=== PATIENT | male | born 1980 | race African-American/Black ===

== ENCOUNTER 2021-04-14 14:23 | Inpatient (IN) | payer MEDICAID ==
[~2021-04-14] VITALS: Ht 177.8 cm; Wt 74.1 kg
--- NOTE | 2021-04-14 15:00 | NUR ---
patient came in to the er c/o R leg cellulitis, on room air, breathing evenly, connected to the monitor and pulse ox, Kept comfortable, will continue to monitor accordingly.
[2021-04-14] MEDS ORDERED: VANCOMYCIN 1 GM in IV D5W 250 ML IV ONE (16:00)
[2021-04-14] MEDS ORDERED: CEFEPIME 1 GM in IV D5W 50 ML IV ONE (16:00)
[2021-04-14] MEDS ORDERED: ACYC-108 PO (16:19)
[2021-04-14] MEDS ORDERED: GABA-532 PO (16:19)
[2021-04-14 16:57] LABS: BASOPHILS % (AUTO) 0.2 % (0.0-2.0); EOSINOPHILS % (AUTO) 0.4 % (0.0-6.0); HEMATOCRIT 43 % (39-51); HEMOGLOBIN 14.2 g/dL (13.5-17.5); LYMPHOCYTES # (AUTO) 1.2 K/uL (0.8-4.8); LYMPHOCYTES % (AUTO) 15.6 % (20.0-44.0); MEAN CORPUSCULAR HGB CONC 33 g/dl (31.0-36.0); MEAN CORPUSCULAR VOLUME 81 fL (80-96); MONOCYTES # (AUTO) 1.1 K/uL (0.1-1.30); NEUTROPHILS # (AUTO) 5.5 K/uL (1.8-8.9); NEUTROPHILS % (AUTO) 69.8 % (43.0-81.0); PLATELET COUNT (AUTO) 126 K/uL (150-450); RED BLOOD CELL COUNT(AUTO) 5.34 MIL/uL (4.5-6.0); WHITE BLOOD COUNT (AUTO) 7.9 K/uL (4.3-11.0)
[2021-04-14 17:05] LABS: CALCIUM, SERUM 8.6 mg/dL (8.5-10.1); CREATININE 1.3 mg/dL (0.6-1.3); POTASSIUM 3.5 mmol/L (3.5-5.1)
--- NOTE | 2021-04-14 18:13 | NUR ---
technical cable jointer at bedside for exam.
--- NOTE | 2021-04-14 19:22 | NUR ---
REC'D REPORT FROM JENI WINN FOR KYLE
[2021-04-14] MEDS ORDERED: Z GUARD REMEDY 2 OZ OINT TP PRN (20:00)
[2021-04-14] MEDS ORDERED: ONDANSETRON HCL/PF 4 MG/2 ML VIAL IVP PRN (20:00)
[2021-04-14] MEDS ORDERED: MAGNESIUM HYDROXIDE 30 ML UDC PO PRN (20:00)
[2021-04-14] MEDS ORDERED: ZOLPIDEM TARTRATE 5 MG TABLET PO PRN (20:00)
[2021-04-14] MEDS ORDERED: MORPHINE SULFATE INJ 2 MG/ML DISP.SYRIN IV PRN (20:00)
[2021-04-14] MEDS ORDERED: MAG HYDROX/AL HYDROX/SIMETH 30 ML UDC PO PRN (20:00)
--- NOTE | 2021-04-14 20:00 | NUR ---
[facility] SWAB COLLECTED AND SENT TO LAB. PATIENT'S BELONGINGS LIST DONE.
--- NOTE | 2021-04-14 20:13 | NUR ---
COVID SWAB SENT TO LAB
[2021-04-14] MEDS ORDERED: CEFEPIME 2 GM in IV D5W 100 ML IV SCH (21:00)
--- NOTE | 2021-04-14 21:02 | NUR ---
F/U FOR COVID RESULT. PER LAB ANOTHER 5-10 MIN
--- NOTE | 2021-04-14 21:15 | NUR ---
REPORT GIVEN TO [facility] [place] NURSE
[2021-04-14 21:30] VITALS: BP 143/62
[2021-04-14 22:00] VITALS: BP 143/62
[2021-04-14] MEDS: ENOXAPARIN SODIUM 40 MG/0.4 ML DISP.SYRIN SQ SCH (22:12)
[2021-04-14] MEDS ORDERED: CEFEPIME 1 GM VIAL ONE (22:12)
[2021-04-14] MEDS: ACETAMINOPHEN 325 MG TABLET PO PRN (22:52)
--- NOTE | 2021-04-14 23:00 | NUR ---
ADMITTED PATIENT FROM ED DUE TO RIGHT LOWER LEG CELLULITIS. ALERT/ORIENTED X4, ROOM AIR, LUNG SOUNDS ARE CLEAR, ABDOMEN SOFT AND NON-TENDER, DENIES NUMBNESS OF BLE. PAIN OF THE RIGHT LYMPH NODE AND RIGHT LEG, REDNESS, MILD SWELLING, PAIN ON AMBULATION, PER PATIENT, HAS HISTORY OF SHINGLES, KEPT SAFE, WILL CONTINUE TO MONITOR.
[2021-04-14] MEDS: IV NS 0.9% 1,000 ML IV PRN (23:28)
[2021-04-14] MEDS: CEFEPIME 2 GM in IV D5W 100 ML IV SCH (23:28)
[2021-04-14] MEDS ORDERED: VANCOMYCIN 1 GM VIAL ONE (23:46)
[2021-04-15] MEDS ORDERED: VANCOMYCIN 1 GM in IV D5W 250 ML IV ONE (05:00)
--- NOTE | 2021-04-15 06:09 | NUR ---
ALERT/ORIENTED X4, ROOM AIR, COMPLAINING OF PAIN OF THE RIGHT GROIN LYMPH NODE AND RIGHT LEG, DX CELLULITIS OF THE RIGHT LOWER EXTREMITIES. RIGHT LEG IS RED, WITH MILD SWELLING, PAINFUL ON AMBULATION. NS AT 75 ML/HR, MAXIPIME Q8HRS, GIVEN IN ED AND IN THE UNIT. VANCOMYCIN 1 GRAM X1. WILL ORDER WOUND CARE CONSULT.
[2021-04-15 06:58] LABS: BASOPHILS % (AUTO) 0.3 % (0.0-2.0); EOSINOPHILS % (AUTO) 1.2 % (0.0-6.0); HEMATOCRIT 39 % (39-51); HEMOGLOBIN 13.5 g/dL (13.5-17.5); LYMPHOCYTES # (AUTO) 1.7 K/uL (0.8-4.8); LYMPHOCYTES % (AUTO) 23.5 % (20.0-44.0); MEAN CORPUSCULAR HGB CONC 34 g/dl (31.0-36.0); MEAN CORPUSCULAR VOLUME 80 fL (80-96); MONOCYTES # (AUTO) 1.3 K/uL (0.1-1.30); MONOCYTES % (AUTO) 18.1 % (2.0-12.0); NEUTROPHILS # (AUTO) 4.1 K/uL (1.8-8.9); NEUTROPHILS % (AUTO) 56.9 % (43.0-81.0); PLATELET COUNT (AUTO) 132 K/uL (150-450); RED BLOOD CELL COUNT(AUTO) 4.94 MIL/uL (4.5-6.0); WHITE BLOOD COUNT (AUTO) 7.2 K/uL (4.3-11.0)
--- NOTE | 2021-04-15 07:32 | NUR ---
RN OPENING NOTE PATIENT SLEEP IN BED RESTING. AWAKEN TO VERBAL STIMULI A/O X4. NO S/S OF PAIN NOTED AT THIS TIME. ON ROOM AIR. NO DISTRESS OR SHORTNESS OF BREATH NOTED, BREATHING EVEN/UNLABORED. IV ACCESS RAC #18G NS 75ML/HR. FALL AND SAFETY MEASURES IN PLACE, BED ALARM ON, BED IN LOW AND LOCK POSITION, CALL LIGHT AND TABLE WITHIN EASY REACH, SIDE RAILS UP X2. WILL CONTINUE TO MONITOR.
[2021-04-15 07:51] LABS: ALBUMIN 3.3 g/dL (3.4-5.0); BILIRUBIN,TOTAL 0.8 mg/dL (0.2-1.0); CALCIUM, SERUM 8.8 mg/dL (8.5-10.1); CREATININE 1.3 mg/dL (0.6-1.3); MAGNESIUM 2.1 mg/dL (1.8-2.4); PHOSPHORUS 2.8 mg/dL (2.5-4.9); POTASSIUM 3.3 mmol/L (3.5-5.1); TOTAL PROTEIN, SERUM 7.2 g/dL (6.4-8.2)
[2021-04-15 08:00] VITALS: BP 119/69
[2021-04-15] MEDS: ACETAMINOPHEN 325 MG TABLET PO PRN (08:15)
[2021-04-15] MEDS: PANTOPRAZOLE 40 MG TABLET.DR PO SCH (08:16)
[2021-04-15] MEDS: CEFEPIME 2 GM in IV D5W 100 ML IV SCH ×2 (08:16→16:16)
--- NOTE | 2021-04-15 08:20 | NUR ---
RN NOTE VANCOMYCIN STOCK MED GIVEN LAST NIGHT FOR SCHEDULED DOSE.
[2021-04-15] MEDS ORDERED: POTASSIUM CHLORIDE 20 MEQ TAB.PRT.SR PO ONE (11:00)
--- NOTE | 2021-04-15 11:37 | NUR ---
WOUND CARE CONSULT: PT PRESENTS WITH RT LOWER LEG DISCOLORATION AND FRAGILE INTACT BLISTERING, PRESENT ON ADMISSION. DPM CONSULT CALLED TO DR HAMPAPUR. GILLIS IN AGREEMENT WITH PLAN OF CARE.
[2021-04-15 16:00] VITALS: BP 126/61
[2021-04-15 17:27] LABS: LYMPHOCYTES % (MANUAL) 28 % (16-48); MONOCYTES % (MANUAL) 13 % (0-11.0); NEUTROPHILS % (MANUAL) 59 (42-76)
[2021-04-15] MEDS: VANCOMYCIN 1.25 GM in IV D5W 250 ML IV SCH (18:34)
--- NOTE | 2021-04-15 18:42 | NUR ---
RN OPENING NOTE PATIENT AWAKE IN BED RESTING. FAMILY IN ROOM. A/O X4. NO S/S OF PAIN NOTED AT THIS TIME. ON ROOM AIR. NO DISTRESS OR SHORTNESS OF BREATH NOTED, BREATHING EVEN/UNLABORED. IV ACCESS RAC #18G NS 75ML/HR. FALL AND SAFETY MEASURES IN PLACE, BED ALARM ON, BED IN LOW AND LOCK POSITION, CALL LIGHT AND TABLE WITHIN EASY REACH, SIDE RAILS UP X2. WILL CONTINUE TO MONITOR. Addendum: 04/15/21 at 1847 by Kalpana Alcantara RN RN CLOSING NOTE
--- NOTE | 2021-04-15 21:16 | NUR ---
MS RN OPENING NOTES: RECEIVED PATIENT IN BED, AWAKE, A/O X3. NO S/S OF DISTRESS. PATIENT DENIES ANY PAIN AT THIS TIME. RESPIRATION EVEN AND UNLABORED WITH EQUAL RISE AND FALL OF THE CHEST, ON ROOM AIR. ALL SAFETY MEASURES IN PLACE. WILL CONTINUE TO MONITOR.
[2021-04-15] MEDS: ENOXAPARIN SODIUM 40 MG/0.4 ML DISP.SYRIN SQ SCH (21:30)
[2021-04-15 22:13] VITALS: BP 143/71
[2021-04-16] MEDS: CEFEPIME 2 GM in IV D5W 100 ML IV SCH ×4 (00:20→23:52)
[2021-04-16 03:24] LABS: BASOPHILS % (AUTO) 0.5 % (0.0-2.0); EOSINOPHILS % (AUTO) 3.6 % (0.0-6.0); HEMATOCRIT 40 % (39-51); HEMOGLOBIN 13.4 g/dL (13.5-17.5); LYMPHOCYTES # (AUTO) 1.8 K/uL (0.8-4.8); LYMPHOCYTES % (AUTO) 30.6 % (20.0-44.0); MEAN CORPUSCULAR HGB CONC 33 g/dl (31.0-36.0); MEAN CORPUSCULAR VOLUME 79 fL (80-96); MONOCYTES # (AUTO) 0.8 K/uL (0.1-1.30); NEUTROPHILS % (AUTO) 51.3 % (43.0-81.0); PLATELET COUNT (AUTO) 150 K/uL (150-450); RED BLOOD CELL COUNT(AUTO) 5.06 MIL/uL (4.5-6.0); WHITE BLOOD COUNT (AUTO) 5.8 K/uL (4.3-11.0)
[2021-04-16 03:38] LABS: CALCIUM, SERUM 8.6 mg/dL (8.5-10.1); CREATININE 1.2 mg/dL (0.6-1.3); PHOSPHORUS 3.4 mg/dL (2.5-4.9); POTASSIUM 3.6 mmol/L (3.5-5.1)
[2021-04-16] MEDS: VANCOMYCIN 1.25 GM in IV D5W 250 ML IV SCH ×2 (04:22→17:05)
--- NOTE | 2021-04-16 07:16 | NUR ---
MS RN OPENING NOTE RECEIVED PATIENT ALERT/ ORIENTED X 4. PATIENT IS ON ROOM AIR WITH EQUAL AND UNLABORED BREATHING WITH NO SIGNS OF RESPIRATORY DISTRESS. PATIENT DOS NOT COMPLAIN OF PAIN OR DISCOMFORT FOR NOW. PATIENT WITH IV ACCESS ON RIGHT AC G 18 WITH IVF OF NS RUNNING AT 75ML/HR INFUSING WELL. SAFETY MEASURES ENSURED WITH BED LOCKED AND AT LOWEST POSITION, WITH SIDERAILS UP. CALL LIGHT AND TABLE WITHIN REACH AT ALL TIMES. WILL CONTINUE TO MONITOR PATIENT.
[2021-04-16 08:00] VITALS: BP 121/78
[2021-04-16] MEDS: PANTOPRAZOLE 40 MG TABLET.DR PO SCH (08:19)
[2021-04-16] MEDS: IV NS 0.9% 1,000 ML IV PRN (12:29)
--- NOTE | 2021-04-16 19:38 | NUR ---
RN OPENING NOTES Patient is A&Ox4, girlfriend at bedside. Says only very minimal pain to Right lower leg but is better when elevated on pillow. Denies side effects from abx. Tolerating well. RAC #18G IV patent and infusing NS at 75cc/hr. Will continue with plan of care.
[2021-04-16 20:00] VITALS: BP 137/66
[2021-04-16] MEDS: ENOXAPARIN SODIUM 40 MG/0.4 ML DISP.SYRIN SQ SCH (20:43)
[2021-04-17] MEDS: VANCOMYCIN 1.25 GM in IV D5W 250 ML IV SCH (03:55)
[2021-04-17] MEDS: IV NS 0.9% 1,000 ML IV PRN (05:52)
--- NOTE | 2021-04-17 06:15 | NUR ---
RN CLOSING NOTES Patient slept well overnight though easy to wake. Tolerating IV ABX well. Pain to Rlowerleg improved and no PRN medications needed. Patient is currently awake, A&Ox4. No signs of distress.
[2021-04-17 07:25] LABS: BASOPHILS % (AUTO) 0.4 % (0.0-2.0); EOSINOPHILS % (AUTO) 4.3 % (0.0-6.0); HEMATOCRIT 39 % (39-51); LYMPHOCYTES # (AUTO) 1.7 K/uL (0.8-4.8); LYMPHOCYTES % (AUTO) 31.1 % (20.0-44.0); MEAN CORPUSCULAR HGB CONC 33 g/dl (31.0-36.0); MEAN CORPUSCULAR VOLUME 80 fL (80-96); MONOCYTES # (AUTO) 0.7 K/uL (0.1-1.30); MONOCYTES % (AUTO) 13.5 % (2.0-12.0); NEUTROPHILS # (AUTO) 2.7 K/uL (1.8-8.9); NEUTROPHILS % (AUTO) 50.7 % (43.0-81.0); PLATELET COUNT (AUTO) 178 K/uL (150-450); RED BLOOD CELL COUNT(AUTO) 4.87 MIL/uL (4.5-6.0); WHITE BLOOD COUNT (AUTO) 5.4 K/uL (4.3-11.0)
--- NOTE | 2021-04-17 07:35 | NUR ---
MS RN OPENING NOTES RECEIVED PT AWAKE, AMBULATORY, NO SIGNS OF ACUTE DISTRESS NOTED. ON ROOM AIR, NO SOB NOTED, BREATHING EVEN AND UNLABORED. WITH IV ACCESS ON RAC #18g, INTACT AND PATENT, WITH NS @75ML/HR RUNNING. OFFERED NO COMPLAINTS. SAFETY PRECAUTIONS MAINTAINED, BED LOCKED AND IN LOWEST POSITION, SR UP X2, CALL LIGHT PLACED WITHIN EASY REACH. WILL CONTINUE TO MONITOR.
--- NOTE | 2021-04-17 07:45 | NUR ---
MS RN CLOSING NOTE PATIENT ALERT/ ORIENTED X 4. PATIENT IS ON ROOM AIR WITH EQUAL AND UNLABORED BREATHING WITH NO SIGNS OF RESPIRATORY DISTRESS. PATIENT DOS NOT COMPLAIN OF PAIN OR DISCOMFORT FOR NOW. PATIENT WITH IV ACCESS ON RIGHT AC G 18 WITH IVF OF NS RUNNING AT 75ML/HR INFUSING WELL. SAFETY MEASURES ENSURED WITH BED LOCKED AND AT LOWEST POSITION, WITH SIDERAILS UP. CALL LIGHT AND TABLE WITHIN REACH AT ALL TIMES. WILL ENDORSE PATIENT FOR CONTINUITY OF CARE.
[2021-04-17] MEDS: PANTOPRAZOLE 40 MG TABLET.DR PO SCH (07:50)
[2021-04-17 08:00] VITALS: BP 143/75
[2021-04-17 08:15] LABS: CALCIUM, SERUM 8.8 mg/dL (8.5-10.1); CREATININE 1.1 mg/dL (0.6-1.3); PHOSPHORUS 3.1 mg/dL (2.5-4.9); POTASSIUM 3.4 mmol/L (3.5-5.1)
[2021-04-17] MEDS: CEFEPIME 2 GM in IV D5W 100 ML IV SCH (09:03)
[2021-04-17] MEDS ORDERED: POTASSIUM CHLORIDE 20 MEQ TAB.PRT.SR PO SCH (11:00)
--- NOTE | 2021-04-17 14:08 | NUR ---
SW received consult for insurance/medical coverage. SW met with pt. regarding his insurance coverage. Pt. mentioned he had stayed over night at hospital, its expensive, and he is concerned that his insurance wont cover his stay. SW tried getting in contact with the [employer] dairy machine operator farmworker, so she can talk to pt., but no answer. SW will try again.
[2021-04-17] MEDS ORDERED: CLIN300C12 PO (14:17)
[2021-04-17] MEDS ORDERED: NAPR-1164 PO (14:17)
[2021-04-17] MEDS ORDERED: L. A1CAP11 PO (14:20)
--- NOTE | 2021-04-17 15:45 | NUR ---
STOCK TURNER NOTES PT DISCHARGE HOME IN STABLE CONDITION. A/O X4, VERBALLY RESPONSIVE, ABLE TO MAKE NEEDS KNOWN. VITAL SIGNS TAKEN, STABLE AND RECORDED. ALL BELONGINGS ACCOUNTED FOR, FORM SIGNED BY PT. IV ACCESS ON RIGHT AC REMOVED, NO BLEEDING NOTED, DRY PRESSURE DRESSING APPLIED TO SITE. NAME [facility] REMOVED, HEALTH TEACHINGS AND DISCHARGE INSTRUCTIONS PROVIDED TO PT WITH VERBALIZATION OF UNDERSTANDING. RIGHT LOWER LEG CELLULITIS PHOTO TAKEN, PLACED IN PT'S CHART. APPLIED DRESSING ON SITE, ALSO COMPRESSION STOCKING APPLIED PER MD'S INSTRUCTIONS. PT LEFT UNIT AT 1525 AMBULATORY. PT WILL BE PICKED-UP BY [facility] VIA [employer]IVATE CAR. CN AND MD AWARE OF DISCHARGE.
== END 2021-04-17 15:10 | disposition home or self-care (01) | DRG 383 ==
LOC: ER 14:43 → MED 20:01
PROVIDERS: ADMIT Hospitalist; ATTEND Nurse Practitioner Acute Care
DX: L03.115 Cellulitis of right lower limb (principal); D69.6 Thrombocytopenia, unspecified; R59.0 Localized enlarged lymph nodes; Z79.899 Other long term (current) drug therapy; Z20.822 Contact with and (suspected) exposure to COVID-19; Z86.19 Personal history of other infectious and parasitic diseases; M79.661 Pain in right lower leg; S80.821A Blister (nonthermal), right lower leg, initial encounter; X58.XXXA Exposure to other specified factors, initial encounter; Y93.9 Activity, unspecified; Y92.009 Unspecified place in unspecified non-institutional (private) residence as the place of occurrence of the external cause
CPT/HCPCS: 36415; 71045-TC; 80048-TC; 80053-TC; 80202-TC; 83605-TC; 83735-TC; 84100-TC; 85025-TC; 85730-TC; 87040-TC; 87081-TC; 93971-TC; G0378; J0692; J1650; J3370; J7030; J7060

== ENCOUNTER 2021-08-10 07:26 | Emergency (ER) | payer MEDICAID ==
[~2021-08-10] VITALS: Ht 182.9 cm; Wt 90.7 kg
[~2021-08-10 07:26] MED LIST: ACYC-108 PO; CLIN300C12 PO; GABA-532 PO; L. A1CAP11 PO; NAPR-1164 PO
[2021-08-10 07:37] VITALS: BP 107/68
--- NOTE | 2021-08-10 07:40 | NUR ---
AT BEDSIDE FOR EVAL.
[2021-08-10] MEDS ORDERED: VANCOMYCIN 1 GM VIAL ONE (07:58)
[2021-08-10] MEDS ORDERED: VANCOMYCIN 1 GM in IV D5W 250 ML IV ONE (08:00)
[2021-08-10 08:19] LABS: BASOPHILS % (AUTO) 0.4 % (0.0-2.0); EOSINOPHILS % (AUTO) 0.5 % (0.0-6.0); HEMATOCRIT 43 % (39-51); HEMOGLOBIN 13.9 g/dL (13.5-17.5); LYMPHOCYTES # (AUTO) 1.5 K/uL (0.8-4.8); LYMPHOCYTES % (AUTO) 12.9 % (20.0-44.0); MEAN CORPUSCULAR HGB CONC 33 g/dl (31.0-36.0); MEAN CORPUSCULAR VOLUME 80 fL (80-96); MONOCYTES # (AUTO) 1.3 K/uL (0.1-1.30); MONOCYTES % (AUTO) 11.5 % (2.0-12.0); NEUTROPHILS # (AUTO) 8.7 K/uL (1.8-8.9); NEUTROPHILS % (AUTO) 74.7 % (43.0-81.0); PLATELET COUNT (AUTO) 146 K/uL (150-450); RED BLOOD CELL COUNT(AUTO) 5.35 MIL/uL (4.5-6.0); WHITE BLOOD COUNT (AUTO) 11.6 K/uL (4.3-11.0)
[2021-08-10 08:28] LABS: CALCIUM, SERUM 8.6 mg/dL (8.5-10.1); CREATININE 1.3 mg/dL (0.6-1.3); POTASSIUM 3.5 mmol/L (3.5-5.1)
[2021-08-10] MEDS ORDERED: HYDROCODONE/APAP 10/325MG TABLET PO ONE (09:00)
[2021-08-10] MEDS ORDERED: HYDROCODONE/APAP 10/325MG TABLET ONE (09:13)
[2021-08-10] MEDS ORDERED: IBUPROFEN 600 MG TABLET ONE (09:35)
[2021-08-10] MEDS ORDERED: CEPH500C2 PO (09:48)
[2021-08-10] MEDS ORDERED: SULF1TAB48 PO (09:48)
--- NOTE | 2021-08-10 09:51 | NUR ---
IV removed. Catheter intact and site benign. Pressure and 4x4 applied to site. No bleeding noted.Patient discharged to home in stable condition. Written and verbal after care instructions given. Patient verbalizes understanding of instruction.
[2021-08-10] MEDS ORDERED: IBUPROFEN 600 MG TABLET PO ONE (10:00)
== END 2021-08-10 09:54 | disposition home or self-care (01) ==
LOC: ER 07:27
DX: L03.115 Cellulitis of right lower limb (principal); Z60.2 Problems related to living alone; Z79.1 Long term (current) use of non-steroidal anti-inflammatories (NSAID); Z79.899 Other long term (current) drug therapy
CPT/HCPCS: 36415; 80048; 85025; 96365; 99284; J3370; J7060

== ENCOUNTER 2021-09-21 11:19 | Emergency (ER) | payer MEDICAID ==
[~2021-09-21] VITALS: Ht 177.8 cm; Wt 77.1 kg
[~2021-09-21 11:19] MED LIST changes: +CEPH500C2 PO; +SULF1TAB48 PO
[2021-09-21 11:25] VITALS: BP 138/73
[2021-09-21] MEDS ORDERED: GENT5DRO4 RIGHTEYE (11:28)
--- NOTE | 2021-09-21 11:33 | NUR ---
Patient discharged to home in stable condition. Written and verbal after care instructions given. Patient verbalizes understanding of instruction.
--- NOTE | 2021-09-21 11:33 | NUR ---
Patient discharged to home in stable condition. Written and verbal after care instructions given. Patient verbalizes understanding of instruction.
== END 2021-09-21 11:33 | disposition home or self-care (01) ==
LOC: ER 11:25
DX: H10.9 Unspecified conjunctivitis (principal); Z60.2 Problems related to living alone; Z79.899 Other long term (current) drug therapy